=== PATIENT | female | born 1990 | race Caucasian/White ===

== ENCOUNTER 2021-03-11 15:41 | Emergency (ER) | payer MEDICAID, SELFPAY ==
[2021-03-11 15:50] VITALS: BP 143/93; PULSE 109; RESP 16; TEMP 36.7; O2SAT 99
--- NOTE | 2021-03-11 16:15 | DI.RAD_ITS ---
Exam(s) XR ANKLE LT COMPLETE EXAM: XR ANKLE LT COMPLETE CLINICAL HISTORY: Trauma TECHNIQUE: 2D digital imaging was performed. COMPARISON: No exams were available for comparison FINDINGS: BONES: No acute fracture is present. No bony destructive lesion is seen. JOINTS:The ankle mortise is normally aligned. SOFT TISSUE: Normal. IMPRESSION: Unremarkable radiographs of the left ankle. DATA REPOSITORY: RADIATION DOSE DELIVERED:
--- NOTE | 2021-03-11 16:15 | DI.RAD_ITS ---
Exam(s) XR FOOT LT COMPLETE EXAM: XR FOOT LT COMPLETE CLINICAL HISTORY: Trauma R/O Fracture. TECHNIQUE: 2D digital imaging was performed. COMPARISON: No exams were available for comparison FINDINGS: BONES: No acute fracture is present. No bony destructive lesion is seen. JOINTS: No dislocation present. SOFT TISSUE: Normal. IMPRESSION: Unremarkable radiographs of the left foot. DATA REPOSITORY: RADIATION DOSE DELIVERED:
--- NOTE | 2021-03-11 16:15 | DI.CT_ITS ---
Exam(s) CT HEAD CERVICAL SPINE WO EXAM: CT HEAD CERVICAL SPINE WO CLINICAL HISTORY: Trauma 48 hours ago. TECHNIQUE: Imaging Protocol: Axial computed tomography images with coronal and sagittal reformatted images were created and reviewed COMPARISON: No exams were available for comparison FINDINGS: CT Head: Ventricles and Extra axial spaces: Normal in size and morphology for the patient's age. Hemorrhage: None. Cerebral parenchyma: Normal. Midline shift: None. Brainstem/Cerebellum: Normal. Calvarium: Normal. Visualized Paranasal sinuses/Mastoids: Clear. Soft Tissues: Unremarkable. CT Cervical Spine: Bones: No acute fracture or subluxation. Soft Tissues: Unremarkable. Lung Apices: Clear. IMPRESSION: 1. No acute intracranial process. 2. No acute fracture or subluxation in the cervical spine. RADIATION DOSE DELIVERED: 1,606.35mGy.cm Total DLP DATA REPOSITORY: All CT scans at this facility are submitted to the National Radiology Data Registry (NRDR) Dose Index Registry (DIR) with the [employer] (ACR). RADIATION OPTIMIZATION: All CT scans at this facility use at least one of these dose optimization te chniques: automated exposure control; mA and/or kV adjustment per patient size (includes targeted exa ms where dose is matched to clinical indication); or iterative reconstruction.
--- NOTE | 2021-03-11 16:24 | DI.CT_ITS ---
Exam(s) CT CHEST/ABD/PEL W CT THORACIC LUMBAR SPINE REC EXAM: CT CHEST/ABD/PEL W CT thoracic and lumbar recons CLINICAL HISTORY: Trauma 48 hours ago TECHNIQUE: Imaging Protocol: Axial computed tomography images with coronal and sagittal reformatted images were created and reviewed CONTRAST MATERIAL: Intravenous: Omnipaque 350 Contrast volume:90 mL Oral: No COMPARISON: CT CT THORACIC LUMBAR SPINE REC from 03/11/[address] THORACIC LUMBAR SPINE REC from 03/11/2021 FINDINGS: CHEST: Tracheobronchial tree: Patent where visualized. Pulmonary parenchyma: No consolidation or dominant measurable mass. No architectural distortion. Visualized thyroid gland: Unremarkable. Mediastinum and Karime: No dominant adenopathy or fluid collection. Pleura: No effusion or pneumothorax. Heart: The heart is not dilated. No coronary artery calcifications are seen. No pericardial effusion. Aorta: Thoracic aorta non-dilated. Lymph nodes: Within normal limits. Soft tissues: Unremarkable. Bones:Normal. Thoracic spine recons: No acute fracture or subluxation. ABDOMEN: Liver: Normal density. No measurable mass. Portal, Superior Mesenteric, and Splenic Veins: Unremarkable. Gallbladder and Biliary Tract: No radiodense calculus or dilation. Pancreas: Normal density, no abnormal calcifications or inflammatory process. Spleen: Normal. Adrenals: No masses seen. Kidneys: Normal size, contour and axis. No radiodense stones or obstructive uropathy. There is a 2 cm round hypodensity in the superior pole of the right kidney. Differential considerations include a r enal cyst or mass. In the setting of trauma contusion cannot be excluded. No associated edema or he morrhage is seen. Its appearance is not consistent with a laceration. Follow-up is recommended. Th is may include a repeat CT scan or an ultrasound. Abdominal Aorta: Abdominal portion non-dilated. Bowel: No obstruction or bowel wall thickening. No evidence of appendicitis. Peritoneal Cavity: No ascites, collection or mesenteric inflammatory response. No free air. Lymph Nodes: Within normal limits. Bones: Unremarkable. Soft Tissues: Unremarkable. PELVIS: Bladder: Symmetric distention, no gross wall thickening. Reproductive Organs: There do appear to be right adnexal cysts. These are likely benign appearing fo llicles measuring up to 4 cm. Ultrasound may be obtained if clinically indicated. Lymph Nodes: Within normal limits. Bones: Within normal limits. Lumbar spine recons: No acute fracture or subluxation. IMPRESSION: 1. 2 cm round hypodensity in the superior pole of the right kidney. This may represent a small cyst or mass. It does not have the appearance of a laceration. In the setting of trauma, small contusion is possible. Follow-up CT scan or ultrasound is recommended for further evaluation. 2. No acute fracture or subluxation in the lumbar spine. 3. Unremarkable CT scan of the chest. 4. No acute fracture or subluxation in the thoracic spine. RADIATION DOSE DELIVERED: Total DLP DATA REPOSITORY: All CT scans at this facility are submitted to the National Radiology Data Registry (NRDR) Dose Index Registry (DIR) with the [employer] (ACR). RADIATION OPTIMIZATION: All CT scans at this facility use at least one of these dose optimization te chniques: automated exposure control; mA and/or kV adjustment per patient size (includes targeted exa ms where dose is matched to clinical indication); or iterative reconstruction.
--- NOTE | 2021-03-11 16:28 | ED.GENADUL_ITS ---
Discharge Plan Disposition Patient Disposition: HOME Condition: Stable Discharge Details Clinical Impression: Fall involving bunk bed as cause of accidental injury, Left ankle sprain Primary Care Provider: Libby Carver ED Provider: Ida Salmeron Home Meds and New Rx's Prescriptions: No Action cyclobenzaprine 10 mg tablet RF: 0 minocycline 100 mg capsule RF: 0 sertraline 100 mg tablet RF: 0 lorazepam 0.5 mg tablet RF: 0 sertraline 25 mg tablet 50 mg RF: 0 albuterol sulfate [ProAir HFA] 90 mcg/actuation HFA aerosol inhaler INHALATION RF: 0 azithromycin 250 MG tablet 250 mg PO DIRECTED Qty: 6 RF: 0 Discharge Instructions Instructions: Ankle Sprain (ED) Additional Instructions: Rest ice compression elevation. Today the head CT spine CTs and CT chest abdomen pelvis are all within normal limits. Follow up with primary care provider in 3-5 days. Return to ED sooner if any worsening or concerns. Increase oral fluids. Please take Tylenol or Ibuprofen with food every 4-6 hours as needed for pain and swelling. Use splint as needed for comfort. Stand Alone Forms: Work Release Referrals: Libby Carver [Primary Care Provider] - Discharge Data Discharge Date/Time-TO BE ENTERED AT DEPARTURE: 03/11/21 18:47 Medical Decision Making 30-year-old female presents to the ER status post fall from approximately 6 feet 40 hours ago. Patient was on top of a bunk bed painting a ceiling when she fell forward while getting off the bunk bed catching her left foot on the bottom bunk and hitting her head against the wall. She denies loss of consciousness however did see stars. She is complaining of headache midline C-spine tenderness back pain numbness and tingling to her left fingers and left ankle with pain. She also endorses nausea. Denies any chest or abdominal pain denies any he matochezia or problems urinating. Last normal menstrual period was 1 week ago she is taking control pills. She has not taken any Tylenol or ibuprofen prior to arrival. Labs urine , CT chest C-spine abdomen pelvis with recons T and L-spine ordered. X-rays of foot and ankle. CT abdomen pelvis: IMPRESSION: 1. 18 mm superior right renal cortical lesion as described above. In the setting of trauma, a small contusion is possible. The morphology is not consistent with a laceration. Alternatively, a small renal infarct or renal mass can have this appearance and follow-up is recommended. There is no surrounding edema or hemorrhage. 2. Incidental findings as described. CT chest: FINDINGS: Lungs: No traumatic pathology in the lungs. No evidence of pneumonia. Pleural spaces: No pneumothorax. No pleural effusion. Heart: No cardiomegaly. No pericardial effusion. Aorta: No aortic aneurysm. Lymph nodes: No enlarged lymph nodes. Bones/joints: Nonacute rib fractures are present. No acute rib fracture is seen. No acute fracture or subluxation. Soft tissues: No suspicious lesions. IMPRESSION: No acute findings. Imaging protocol: XR Left ankle. Views: 3 or more views. COMPARISON: No relevant prior studies available. FINDINGS: Bones/joints: No acute fracture or subluxation. Soft tissues: Unremarkable. IMPRESSION: No acute bony pathology. X-ray left foot: FINDINGS: Bones/joints: No acute fracture or subluxation. Soft tissues: Normal. IMPRESSION: No acute bony pathology CT C-spine: FINDINGS: Bones/joints: No acute fracture. Normal alignment. Discs/Spinal canal/Neural foramina: No significant disc protrusion. No severe spinal canal stenosis. No significant neural foraminal narrowing. Lungs: Lung apices are normal. Soft tissues: Unremarkable. IMPRESSION: No acute findings. CT head: FINDINGS: Brain: Normal. No hemorrhage. Unremarkable white matter. No mass effect. Cerebral ventricles: No ventriculomegaly. Paranasal sinuses: Visualized sinuses are unremarkable. No fluid levels. Mastoid air cells: Visualized mastoid air cells are well aerated. Bones/joints: Unremarkable. No acute fracture. Soft tissues: Unremarkable. IMPRESSION: No acute intracranial abnormality. C-collar removed. Discussed CT results with patient and home care strict return instructions. Patient verbalized understanding. Patient was placed in a lace up ankle splint and work note given. Patient remained hemodynamically stable condition throughout stay. This text was generated using [employer] system, please disregard any oddities of phrase or misspellings. HPI General Mode of arrival: wheelchair . Date/Time Provider Initiated Documentation: 03/11/21 16:19 . Limitations to Documentation: no limitations . Information obtained by: patient and RN notes reviewed . HPI Narrative: 30-year-old female presents to the ER status post fall from approximately 6 feet 40 hours ago. Patient was on top of a bunk bed painting a ceiling when she fell forward while getting off the bunk bed catching her left foot on the bottom bunk and hitting her head against the wall. She denies loss of consciousness however did see stars. She is complaining of headache midline C-spine tenderness back pain numbness and tingling to her left fingers and left ankle with pain. She also endorses nausea. Denies any chest or abdominal pain denies any hematochezia or problems urinating. Last normal menstrual period was 1 week ago she is taking control pills. She has not taken any Tylenol or ibuprofen prior to arrival. Related Data Home Medications Medication Instructions Recorded Confirmed azithromycin 250 mg PO DIRECTED #6 tab 07/20/16 albuterol sulfate [ProAir HFA] INHALATION 03/11/21 03/11/21 cyclobenzaprine mg 03/11/21 lorazepam 03/11/21 03/11/21 minocycline 03/11/21 03/11/21 sertraline 50 mg 03/11/21 sertraline mg 03/11/21 03/11/21 Previous Rx's Medication Instructions Recorded azithromycin 250 mg PO DIRECTED #6 tab 07/20/16 Allergies Allergy/AdvReac Type Severity Reaction Status Date / Time Penicillins Allergy Intermediate Nausea Unverified 03/11/21 15:58 General Stated Complaint: Trauma NAYLA: 3 Review of Systems All systems reviewed & are unremarkable except as noted in HPI and below [facility] Social History Smoking/Tobacco Use Status: Current every day Tobacco Type: cigarettes Smoking risk assessment performed?: Yes Alcohol Intake: never Drug use: Never Substance use type: marijuana Do you feel safe in your relationship?: Yes Exam Narrative Exam Narrative: General: Well Developed, Awake and Alert, conversant. Skin: Warm and Dry HEENT: Head: No palpable deformities, Normocephalic Eyes: Pupils PERRLA, EOM's intact. No periorbital eccymosis or step off Ears: Canal patent. Tympanic membranes are clear . No fournier's sign, no hemptympanum. Nose/Face: Abrasion noted to middle of frontal scalp, tip of nose, lip and chin, appears superficial and beginning to scab over. I am facial bones nontender to palpation and stable with manipulation. Mouth/Throat: No intraoral trauma. Teeth and mandible are intact. Neck: Complaining of midline C-spine tenderness. No step off, no deformity to palpation of C-spine. Trachea midline. C-collar in place prior to my examination. Chest: No surface trauma. Nontender without crepitus or deformity. Lungs clear to ausculatation bilaterally. Heart: RRR, no rubs, murmurs or gallop. Abdomen: No abrasions, ecchymosis, or surface trauma. Nondistended. Nontender to palpation no guarding, rebound, or rigidity. Pelvis: Nontender to palpation and stable to compression. Femoral pulses strong and equal Extremities: Contusion noted to the left ankle and foot. Sensation intact. Peripheral pulses intact and equal. Neuro: ANO x4, GCS 15, cranial nerves II through XII intact. Motor and sensory exam nonfocal. Reflexes are symmetric. Course Vital Signs Vital signs: Vital Signs Temperature 36.7 C 03/11/21 15:50 Pulse 109 H 03/11/21 15:50 Respiratory Rate 16 03/11/21 15:50 Blood Pressure 143/93 H 03/11/21 15:50 Pulse Oximetry 99 03/11/21 15:50 Temperature 36.7 C 03/11/21 15:50 Temperature Source Skin 03/11/21 15:50 Pulse 109 H 03/11/21 15:50 Respiratory Rate 16 03/11/21 15:50 Respiratory Effort Non-Labored 03/11/21 16:18 Respiratory Depth Normal 03/11/21 16:18 Respiratory Pattern Normal 03/11/21 16:18 Blood Pressure 143/93 H 03/11/21 15:50 Blood Pressure Position Sitting 03/11/21 15:50 Pulse Oximetry 99 03/11/21 15:50 Oxygen Delivery Method Room Air 03/11/21 15:50 Oxygen Flow Rate 0 03/11/21 15:50 Pain Level 6 03/11/21 15:50 Comment 03/11/21 15:50
[2021-03-11] MEDS: Acetaminophen 500 MG TAB PO (17:05)
[2021-03-11] MEDS: Ondansetron O.D.T. 4 MG TABEF PO (17:05)
[2021-03-11] MEDS: Cyclobenzaprine 10 MG TAB PO (17:05)
[2021-03-11 18:15] LABS: Abs Immature Grans 0.01 10^3/uL (0.0-0.06); Absolute Basophil Count 0.03 10^3/uL (0.0-0.2); Absolute Eosinophil Count 0.24 10^3/uL (0.0-0.7); Absolute Lymphocyte Count 1.38 10^3/uL (1.2-3.4); Absolute Monocyte Count 0.48 10^3/uL (0.1-0.8); Absolute Neutrophil Count 4.78 10^3/uL (1.2-6.7); Basophils % 0.4; Eosinophils % 3.5; HCT 40.3 % (36.0-46.0); HGB 13.7 g/dL (11.2-15.7); Immature Grans % 0.1; Lymphocytes % 19.9; MCH 31.6 pg (27.0-33.0); MCV 93.1 fL (80-95); MPV 9.3 fL (8.0-11.0); Monocytes % 6.9; Neutrophils % 69.2; Nucleated RBC 0 %; Platelet Count 227 10^3/uL (130-400); RBC 4.33 10^6/uL (3.93-5.22); RDW 11.8 % (11.7-14.6); RDW-SD 40.6 fL; WBC 6.92 10^3/uL (4.4-10.8)
--- NOTE | 2021-03-11 18:15 | DI.VRAD_ITS ---
PROCEDURE INFORMATION: Exam: XR Left Foot Exam date and time: 03/11/2021 16:28 Age: 30 years old Clinical indication: Pain; Foot; Left; Patient HX: Trauma 48hrs ago, per PT, fell from top bunk TECHNIQUE: Imaging protocol: XR Left foot. Views: 3 or more views. COMPARISON: CR XR ANKLE LT COMPLETE 03/11/2021 18:00 FINDINGS: Bones/joints: No acute fracture or subluxation. Soft tissues: Normal. IMPRESSION: No acute bony pathology. Dictated and Authenticated by: Claudine Tim MD. Ordering:SHADY Prieto MD
--- NOTE | 2021-03-11 18:15 | DI.VRAD_ITS ---
PROCEDURE INFORMATION: Exam: XR Left Ankle Exam date and time: 03/11/2021 16:28 Age: 30 years old Clinical indication: Pain; Ankle; Left; Patient HX: Trauma, per PT: Fell from top bunk 48hrs ago TECHNIQUE: Imaging protocol: XR Left ankle. Views: 3 or more views. COMPARISON: No relevant prior studies available. FINDINGS: Bones/joints: No acute fracture or subluxation. Soft tissues: Unremarkable. IMPRESSION: No acute bony pathology. Dictated and Authenticated by: Claudine Tim MD. Ordering:SHADY Prieto MD
--- NOTE | 2021-03-11 18:22 | DI.VRAD_ITS ---
PROCEDURE INFORMATION: Exam: CT Chest With Contrast; Diagnostic Exam date and time: 03/11/2021 16:28 Age: 30 years old Clinical indication: Injury or trauma; Patient HX: Per PT: Fall from top bunk 48hrs ago TECHNIQUE: Imaging protocol: Diagnostic computed tomography of the chest with contrast. COMPARISON: No relevant prior studies available. FINDINGS: Lungs: No traumatic pathology in the lungs. No evidence of pneumonia. Pleural spaces: No pneumothorax. No pleural effusion. Heart: No cardiomegaly. No pericardial effusion. Aorta: No aortic aneurysm. Lymph nodes: No enlarged lymph nodes. Bones/joints: Nonacute rib fractures are present. No acute rib fracture is seen. No acute fracture or subluxation. Soft tissues: No suspicious lesions. IMPRESSION: No acute findings. PROCEDURE INFORMATION: Exam: CT Abdomen And Pelvis With Contrast Exam date and time: 03/11/2021 16:28 Age: 30 years old Clinical indication: Injury or trauma; Patient HX: Per PT: Fall from top bunk 48hrs ago TECHNIQUE: Imaging protocol: Computed tomography of the abdomen and pelvis with contrast. COMPARISON: No relevant prior studies available. FINDINGS: Liver: No mass. Gallbladder and bile ducts: No calcified stones. No ductal dilation. Pancreas: No ductal dilation. No masses. Spleen: No splenomegaly or focal lesions. Adrenal glands: No mass. Kidneys and ureters: 18 mm rounded hypodensity, upper pole the right kidney extending to the cortex. No significant surrounding edema or hemorrhage. The left kidney is normal morphology. No obstruction bilaterally. Stomach and bowel: No obstruction. No mucosal thickening. Appendix: No evidence of appendicitis. Intraperitoneal space: No free air. No significant fluid collection. Vasculature: No abdominal aortic aneurysm. Lymph nodes: No significantly enlarged lymph nodes. Urinary bladder: Unremarkable as visualized. Reproductive: Likely benign-appearing follicle or follicles in the right adnexa measuring to 4 cm in diameter. Would be better worked up with ultrasound if clinically indicated. Normal CT appearance of the uterus. Bones/joints: No acute fracture. Soft tissues: No suspicious lesions. IMPRESSION: 1. 18 mm superior right renal cortical lesion as described above. In the setting of trauma, a small contusion is possible. The morphology is not consistent with a laceration. Alternatively, a small renal infarct or renal mass can have this appearance and follow-up is recommended. There is no surrounding edema or hemorrhage. 2. Incidental findings as described. Dictated and Authenticated by: Claudine Tim MD. Ordering:SHADY Prieto MD
--- NOTE | 2021-03-11 18:23 | DI.VRAD_ITS ---
PROCEDURE INFORMATION: Exam: CT Thoracic Spine Without Contrast Exam date and time: 03/11/2021 16:44 Age: 30 years old Clinical indication: Injury or trauma; Patient HX: Fall 48hrs ago TECHNIQUE: Imaging protocol: Computed tomography images of the thoracic spine without contrast. COMPARISON: No relevant prior studies available. FINDINGS: Vertebrae: No acute fracture or subluxation. Discs/Spinal canal/Neural foramina: No significant disc protrusion. No significant spinal canal stenosis. No significant neural foraminal narrowing. Soft tissues: No suspicious lesions. IMPRESSION: No acute bony pathology. PROCEDURE INFORMATION: Exam: CT Lumbar Spine Without Contrast Exam date and time: 03/11/2021 16:44 Age: 30 years old Clinical indication: Injury or trauma; Patient HX: Fall 48hrs ago TECHNIQUE: Imaging protocol: Computed tomography images of the lumbar spine without contrast. COMPARISON: No relevant prior studies available. FINDINGS: Vertebrae: No acute fracture. Normal alignment. Discs/Spinal canal/Neural foramina: No significant disc disease or stenosis. Soft tissues: No paraspinal lesions or collections. Regarding additional findings please see CT abdomen pelvis same day. IMPRESSION: No acute pathology in the lumbar spine. Dictated and Authenticated by: Claudine Tim MD. Ordering:SHADY Prieto MD
--- NOTE | 2021-03-11 18:25 | DI.VRAD_ITS ---
PROCEDURE INFORMATION: Exam: CT Head Without Contrast Exam date and time: 03/11/2021 4:28 PM Age: 30 years old Clinical indication: Injury or trauma; Patient HX: Fall 48hrs ago TECHNIQUE: Imaging protocol: Computed tomography of the head without contrast. COMPARISON: No relevant prior studies available. FINDINGS: Brain: Normal. No hemorrhage. Unremarkable white matter. No mass effect. Cerebral ventricles: No ventriculomegaly. Paranasal sinuses: Visualized sinuses are unremarkable. No fluid levels. Mastoid air cells: Visualized mastoid air cells are well aerated. Bones/joints: Unremarkable. No acute fracture. Soft tissues: Unremarkable. IMPRESSION: No acute intracranial abnormality. PROCEDURE INFORMATION: Exam: CT Cervical Spine Without Contrast Exam date and time: 03/11/2021 4:28 PM Age: 30 years old Clinical indication: Injury or trauma; Patient HX: Fall 48hrs ago TECHNIQUE: Imaging protocol: Computed tomography images of the cervical spine without contrast. COMPARISON: No relevant prior studies available. FINDINGS: Bones/joints: No acute fracture. Normal alignment. Discs/Spinal canal/Neural foramina: No significant disc protrusion. No severe spinal canal stenosis. No significant neural foraminal narrowing. Lungs: Lung apices are normal. Soft tissues: Unremarkable. IMPRESSION: No acute findings. Dictated and Authenticated by: Basilio Langley MD. Ordering:SHADY Prieto MD
[2021-03-11 18:28] LABS: ALT 30 U/L (14-59); AST 22 U/L (15-37); Albumin 3.4 g/dL (3.4-5.0); Alkaline Phosphatase 43 U/L (46-116); Anion Gap 7.8 mmol/L (3-11); BUN 16 mg/dL (7-18); Bilirubin, Total 0.3 mg/dL (0.2-1.0); CO2 27.2 mmol/L (21.0-32.0); CREATININE 0.9 mg/dL (0.55-1.02); Calcium 8.6 mg/dL (8.5-10.1); Chloride 100 mmol/L (98-107); Glucose 88 mg/dL (74-106); Sodium 135 mmol/L (136-145)
[2021-03-11 18:39] VITALS: BP 130/69; PULSE 86; O2SAT 100
== END 2021-03-11 18:47 | disposition home or self-care (01) ==
PROVIDERS: Emergency Provider Registered Nurse Emergency; PCP Internal Medicine
DX: S93.492A Sprain of other ligament of left ankle, initial encounter (principal); S09.90XA Unspecified injury of head, initial encounter; M54.2 Cervicalgia; M54.89 Other dorsalgia; R20.2 Paresthesia of skin; R11.0 Nausea; W06.XXXA Fall from bed, initial encounter
CPT/HCPCS: 29515; 36415; 74177; 80053; 81025; 99285; 70450; 71260; 72125; 73610; 73630; 85025

== ENCOUNTER 2021-05-15 12:21 | Emergency (ER) | payer MEDICAID, SELFPAY ==
[2021-05-15 12:23] VITALS: BP 137/72; PULSE 122; RESP 18; TEMP 36.1; O2SAT 100
[2021-05-15 12:26] VITALS: BP 137/72; PULSE 99; O2SAT 100
[2021-05-15 12:27] VITALS: O2SAT 99
--- NOTE | 2021-05-15 12:30 | DI.RAD_ITS ---
Exam(s) XR ABDOMEN FLAT UPRIGHT EXAM: 2D digital imaging was performed. CLINICAL HISTORY: lower back pain. COMPARISON: No exams were available for comparison TECHNIQUE: Supine and uprightSupine and Lateral views of the abdomen was performed. FINDINGS: LUNG BASES: Clear. BOWEL GAS PATTERN: Nondistended. There is stool throughout the colon consistent with constipation. FREE AIR: None. CALCIFICATIONS: No radiopaque calcifications. OSSEOUS STRUCTURES: Normal for age. OTHER FINDINGS: None. IMPRESSION: Constipation. DATA REPOSITORY: RADIATION DOSE DELIVERED:
--- NOTE | 2021-05-15 12:39 | ED.GENADUL_ITS ---
Discharge Plan Disposition Patient Disposition: HOME Condition: Improving Discharge Details Clinical Impression: Constipation Primary Care Provider: Libby Carver ED Provider: Elias Lora Home Meds and New Rx's Prescriptions: New docusate sodium [Colace] 100 mg capsule 100 mg PO BID PRN (Reason: constipation) Qty: 10 RF: 0 Continued minocycline 100 mg capsule RF: 0 lorazepam 0.5 mg tablet 0.5 mg PO PRN PRNRF: 0 sertraline 25 mg tablet 100 mg PO DAILY RF: 0 albuterol sulfate [ProAir HFA] 90 mcg/actuation HFA aerosol inhaler INHALATION RF: 0 Discharge Instructions Instructions: Constipation (ED) Additional Instructions: Home to rest today. Small, frequent sips of fluids to maintain good hydration. 5-6 fruits and vegetables per day to increase fiber in the diet. Take Colace twice daily until you have relief of constipation. May benefit from adding daily fiber supplement to your daily routine. Return to the emergency room for any acute concerns. Medical Decision Making 30-year-old female presents from home complaining of 2 days of constant low back pain associated with constipation and in conjunction with the beginning of her menstrual cycle. She also questions new jaundice which she describes as feeling there is a blue rim on her sclera. Patient history of anxiety. She arrives ER afebrile, with a pulse of 120, normotensive and interactive. She does have reproducible musculoskeletal back pain in the lumbar region. She does not appear jaundiced. Given patient's history of anxiety, she was given Ativan in the ER with good relief. She is referred for laboratory testing and x-ray. Labs are reassuring with unremarkable CBC and chemistries. X-ray reveals constipation throughout the colon. Patient reassured, will start her on a stool softener. She is stable, improved, appropriate for discharge to home. HPI General Mode of arrival: ambulatory . Date/Time Provider Initiated Documentation: 05/15/21 12:21 . Limitations to Documentation: no limitations . Information obtained by: patient . History of Present Illness 30 year old F presents to the emergency department with the chief complaint of Low back pain, anxious about question of skin changes, described as moderate, Quality is described as dull and constant, and is localized to the back. Patient reports no radiation. Patient started experiencing this hour(s) and it has been constant. Rest improves symptom(s), Movement worsens symptoms . Patient notes denies chest pain, fever/chills, loss of appetite, nausea/vomiting, shortness of breath, syncope and weakness. Patient did receive the following treatments prior to arrival, none Related Data Home Medications Medication Instructions Recorded Confirmed albuterol sulfate [ProAir HFA] INHALATION 03/11/21 03/11/21 lorazepam 0.5 mg PO PRN PRN 03/11/21 03/11/21 minocycline 03/11/21 03/11/21 sertraline 100 mg PO DAILY 03/11/21 05/15/21 docusate sodium [Colace] 100 mg PO BID PRN #10 cap 05/15/21 Previous Rx's Medication Instructions Recorded docusate sodium [Colace] 100 mg PO BID PRN #10 cap 05/15/21 Allergies Allergy/AdvReac Type Severity Reaction Status Date / Time Penicillins Allergy Intermediate Nausea Unverified 03/11/21 15:58 General Stated Complaint: Nk/Back Pain NAYLA: 3 Review of Systems Narrative: Feels she has a new blue rim around iris, has skin lesions that she attributes to picking behavior, denies changes to urine. Started her menstrual period today with normal flow. Complains of constipation for 3 days. 8 systems reviewed and otherwise negative [facility] Social History Smoking/Tobacco Use Status: Current every day Tobacco Type: cigarettes Smoking risk assessment performed?: Yes Alcohol Intake: former Drug use: Occasionally Substance use type: marijuana Details: no alcohol x2 years Do you feel safe at home: Yes Do you feel safe in your relationship?: Yes Exam Narrative Exam Narrative: GEN: awake, alert, oriented 3. Pleasant, well groomed, interactive. HEAD: Normocephalic, atraumatic ENT: Mucous membranes moist, oropharynx unremarkable, External ear exam unremarkable EYES: PERRL, EOMI NECK: Full ROM, no [place], no menigismus CHEST/RESP: Nontender, clear to auscultation bilateral, no wheeze/rhonchi/rales CARDIOVASCULAR: RRR, no murmur, rub eb. 2+ Rad pulse bilateral ABDOMEN: Soft, nontender, no mass. +Bowel sounds Back: Minimal lower back tenderness both midline and paraspinous areas. No step-off or deformity EXT: Full ROM, no edema, no rash Neuro: Grossly normal neurologic exam, conversant, interactive. Psych: Speech fluent, thoughts congruent, affect anxious Course Vital Signs Vital signs: Vital Signs Temperature 36.1 C L 05/15/21 12:23 Pulse 122 H 05/15/21 12:23 Respiratory Rate 18 05/15/21 12:23 Blood Pressure 137/72 05/15/21 12:23 Pulse Oximetry 100 05/15/21 12:23 Temperature 36.1 C L 05/15/21 12:23 Temperature Source Temporal Artery Scan 05/15/21 12:23 Pulse 122 H 05/15/21 12:23 Respiratory Rate 18 05/15/21 12:23 Respiratory Effort Non-Labored 05/15/21 12:27 Blood Pressure 137/72 05/15/21 12:23 Blood Pressure Position Sitting 05/15/21 12:23 Pulse Oximetry 100 05/15/21 12:23 Oxygen Delivery Method Room Air 05/15/21 12:23 Oxygen Flow Rate 0 05/15/21 12:23 Pain Level 9 05/15/21 12:27
[2021-05-15] MEDS: Normal Saline 1,000 ML 1000 ML IV (12:45)
[2021-05-15 12:50] LABS: Absolute Basophil Count 0.02 10^3/uL (0.0-0.2); Absolute Eosinophil Count 0.12 10^3/uL (0.0-0.7); Absolute Lymphocyte Count 1.24 10^3/uL (1.2-3.4); Absolute Monocyte Count 0.63 10^3/uL (0.1-0.8); Absolute Neutrophil Count 3.13 10^3/uL (1.2-6.7); Basophils % 0.4; Eosinophils % 2.3; HCT 42.8 % (36.0-46.0); HGB 14.2 g/dL (11.2-15.7); Lymphocytes % 24.1; MCH 31.2 pg (27.0-33.0); MCHC 33.2 % (32.0-36.0); MCV 94.1 fL (80-95); MPV 9.6 fL (8.0-11.0); Monocytes % 12.3; Neutrophils % 60.9; Nucleated RBC 0 %; Platelet Count 262 10^3/uL (130-400); RBC 4.55 10^6/uL (3.93-5.22); RDW 12.3 % (11.7-14.6); RDW-SD 42.9 fL; WBC 5.14 10^3/uL (4.4-10.8)
[2021-05-15] MEDS: Ketorolac 15 MG/ML VIAL IVP (12:57)
[2021-05-15] MEDS: LORazepam 2 MG/ML VIAL 0.5 MG IVP (12:59)
[2021-05-15 13:01] LABS: Clarity Cloudy (Clear); Specific Gravity >= 1.030 (1.005-1.025)
[2021-05-15 13:02] LABS: Glucose Negative (Negative); Leukocyte Esterase Negative (Negative); Nitrite Negative (Negative); pH 5.5 (5-8)
[2021-05-15 13:03] LABS: Blood Large (Negative); Urobilinogen 0.2 EU/dL (Up TO 0.2)
[2021-05-15 13:04] LABS: C & S Indicated? No/Sq. Contamination; Epithelial Cells Many HPF (Negative); RBC >50 HPF (0-2)
[2021-05-15 13:06] LABS: ALT 30 U/L (14-59); AST 28 U/L (15-37); Albumin 3.7 g/dL (3.4-5.0); Alkaline Phosphatase 46 U/L (46-116); BUN 13 mg/dL (7-18); Bilirubin, Total 0.6 mg/dL (0.2-1.0); CREATININE 1.1 mg/dL (0.55-1.02); Calcium 9.2 mg/dL (8.5-10.1); Chloride 106 mmol/L (98-107); Estimated GFR 58.32 (mL/min/1.73m2); Glucose 82 mg/dL (74-106); Sodium 143 mmol/L (136-145); Total Protein 7.8 g/dL (6.4-8.2)
--- NOTE | 2021-05-15 14:17 | DI.VRAD_ITS ---
PROCEDURE INFORMATION: Exam: XR Abdomen Exam date and time: 05/15/2021 12:38 PM Age: 30 years old Clinical indication: Other: Lower back pain TECHNIQUE: Imaging protocol: XR of the abdomen. Views: 2 Views. Upright and supine views. COMPARISON: CT CHEST/ABD/PEL W 03/11/2021 5:54 PM FINDINGS: Gastrointestinal tract: Constipation throughout the colon. Intraperitoneal space: Normal. No free air. Bones/joints: Unremarkable for age. IMPRESSION: Constipation throughout the colon. Dictated and Authenticated by: Yaneth Silverio MD. Ordering:YULIA Griffin MD
[2021-05-15 14:27] VITALS: PULSE 76
[2021-05-15 14:29] VITALS: BP 117/78; PULSE 77; RESP 18; TEMP 36.3; O2SAT 100
== END 2021-05-15 14:34 | disposition home or self-care (01) ==
PROVIDERS: Emergency Provider Emergency Medicine; PCP Internal Medicine
DX: K59.00 Constipation, unspecified (principal); F41.9 Anxiety disorder, unspecified
CPT/HCPCS: 36415; 80048; 80053; 81025; 85027; 96361; 96374; 96375; 99284; 74019; 81003; 81015; 85025; J1885; J2060

== ENCOUNTER 2023-02-12 16:06 | Emergency (ER) | payer OTHER, SELFPAY ==
[2023-02-12 16:07] VITALS: BP 130/74; PULSE 73; RESP 15; TEMP 36.7; O2SAT 100
--- NOTE | 2023-02-12 16:34 | ED.GENADUL_ITS ---
Discharge Plan Disposition Patient Disposition: Home Discharge Details Clinical Impression: Laceration of index finger Primary Care Provider: Libby Carver ED Provider: Tony Nieves Home Meds and New Rx's Prescriptions: No Action acetylcysteine 600 mg capsule 600 mg PO BID benzoyl peroxide,skin cleansr5 4 % kit topical clonazepam 0.5 mg tablet 0.5 mg PO DAILY PRN cyclobenzaprine 10 mg tablet 10 mg PO HS doxycycline hyclate 100 mg capsule 100 mg PO BID duloxetine 60 mg capsule,delayed release(DR/EC) 60 mg PO DAILY ibuprofen 800 mg tablet 800 mg PO BID spironolactone 50 mg tablet 50 mg PO DAILY norgestimate-ethinyl estradiol [Tri-Sprintec (28)] 0.18/0.215/0.25 mg-35 mcg (28) tablet 1 tab PO DAILY albuterol sulfate [ProAir HFA] 90 mcg/actuation HFA aerosol inhaler INHALATION Patient Comments: INHALE 2 PUFFS BY MOUTH EVERY 4 HOURS NEEDED docusate sodium [Colace] 100 mg capsule 100 mg PO BID PRN (Reason: constipation) Qty: 10 0RF Discharge Instructions Instructions: Finger Laceration (ED) Additional Instructions: Monitor for signs of infection and return for new or worsening symptoms. Keep wound clean and dry otherwise you may return to activities as tolerated. Referrals: Libby Carver [Primary Care Provider] - (as needed for reassessment ) Medical Decision Making Patient presenting to the emergency department for chief complaint of finger laceration. Patient reports that she was using an air powered saw when it actually slipped and caused a left distal index finger laceration. Patient denies any other injury or trauma, states she is up-to-date on tetanus, denies any numbness tingling or dysfunction of the digit. Physical exam shows a superficial 1 cm laceration to the distal phalanx of the left index finger. Bleeding is controlled and this does not need wound repair. Bandage was replaced and patient encouraged to monitor for signs of infection and return as needed. After discussion of diagnosis and plan of care patient has no further needs, questions, or concerns and states clear understanding to return to the emergency department for any worsening symptoms. This documentation was generated using [employer] system, please disregard any oddities of phrase or misspellings. HPI General Mode of arrival: ambulatory . Date/Time Provider Initiated Documentation: 02/12/23 16:30 . Limitations to Documentation: no limitations . Information obtained by: patient and RN notes reviewed . History of Present Illness 32 year old F presents to the emergency department with the chief complaint of Left index finger injury, described as mild, and is localized to the left and upper extremity. Patient reports no radiation. Patient started experiencing this hour(s) (1) and it has been constant. No relieving factors improve symptom(s), No exacerbating factors reported . Patient notes no other symptoms.. Patient did receive the following treatments prior to arrival, none Related Data Home Medications Medication Instructions Recorded Confirmed albuterol sulfate 90 mcg/actuation inhalation 03/11/21 02/08/22 aerosol inhaler (ProAir HFA) docusate sodium 100 mg capsule 100 mg PO BID PRN constipation #10 05/15/21 02/08/22 (Colace) caps acetylcysteine 600 mg capsule 600 mg PO BID 01/18/22 02/08/22 benzoyl peroxide and skin cleanser ea topical 01/18/22 02/08/22 #5 4 % topical kit clonazepam 0.5 mg tablet 0.5 mg PO DAILY PRN 01/18/22 02/08/22 cyclobenzaprine 10 mg tablet 10 mg PO HS 01/18/22 02/08/22 doxycycline hyclate 100 mg capsule 100 mg PO BID 01/18/22 02/08/22 duloxetine 60 mg capsule,delayed 60 mg PO DAILY 01/18/22 02/12/23 release ibuprofen 800 mg tablet 800 mg PO BID 01/18/22 02/08/22 norgestimate-ethinyl estradiol 1 tab PO DAILY 01/18/22 02/12/23 0.18 mg/0.215mg/0.25mg-35 mcg(28)tablet (Tri-Sprintec (28)) spironolactone 50 mg tablet 50 mg PO DAILY 01/18/22 02/08/22 Previous Rx's Medication Instructions Recorded docusate sodium 100 mg capsule 100 mg PO BID PRN constipation #10 05/15/21 (Colace) caps Allergies Allergy/AdvReac Type Severity Reaction Status Date / Time Penicillins Allergy Intermediate Nausea Unverified 02/12/23 16:12 amoxicillin Allergy Diarrhea Unverified 02/12/23 16:12 General Stated Complaint: Laceration NAYLA: 4 Review of Systems Musculoskeletal Musculoskeletal: Denies arthralgias, Denies joint swelling, Denies limited range of motion, Denies numbness, Denies stiffness and Denies tingling Integumentary/Breasts Skin/Breast: Reports as per HPI Neurologic Neurologic: Denies numbness and Denies tingling PFSH All Active Problems Laceration of index finger (Acute) Muscle spasm (Acute) Fall involving bunk bed as cause of accidental injury (Acute) Left ankle sprain (Acute) Constipation (Acute) Medical History Depressive disorder IUD (intrauterine device) in place Low back pain Lumbar radiculopathy Surgical History [place] teeth removed Family History Sister Hyperglycemia Hypertension Heart disease Brother IBS (irritable bowel syndrome) Mother Ovarian cyst Uterine mass Social History Smoking/Tobacco Use Status: Current every day Tobacco Type: e-cigarettes Smoking risk assessment performed?: Yes Alcohol Intake: former Drug use: Occasionally Substance use type: marijuana Details: no alcohol x2 years Housing: house Do you feel safe at home: Yes Do you feel safe in your relationship?: Yes Exam Const General: cooperative, no acute distress and not ill appearing Orientation: alert, awake and oriented x3 HENMT Mouth: moist mucous membranes Resp Effort & Inspection: normal respiratory effort, able to speak in complete sentences and no respiratory distress Skin General skin exam: no rashes or lesions noted Neuro General: patient alert, patient awake, patient oriented x3, moves all extremities and no focal motor deficits Sensory Exam: no sensory deficits noted Extrem General: normal exam except as noted Left upper extremity: hand Details: laceration (1cm) 2nd digit dorsal aspect Details: linear, superficial, with motor nerve function intact and with sensation intact; not actively bleeding, not involving subcutaneous tissue and not involving muscle tissue Course Vital Signs Vital signs: Vital Signs Temperature 36.7 C 02/12/23 16:07 Pulse 73 02/12/23 16:07 Respiratory Rate 15 02/12/23 16:07 Blood Pressure 130/74 02/12/23 16:07 Pulse Oximetry 100 02/12/23 16:07 Temperature 36.7 C 02/12/23 16:07 Temperature Source Temporal Artery Scan 02/12/23 16:07 Pulse 73 02/12/23 16:07 Respiratory Rate 15 02/12/23 16:07 Respiratory Effort Normal 02/12/23 16:10 Blood Pressure 130/74 02/12/23 16:07 Blood Pressure Position Sitting 02/12/23 16:07 Pulse Oximetry 100 02/12/23 16:07 Oxygen Delivery Method Room Air 02/12/23 16:07 Oxygen Flow Rate 0 02/12/23 16:07 Pain Level 3 02/12/23 16:10
[2023-02-12 16:42] VITALS: BP 132/78; PULSE 77; RESP 18; TEMP 36.9; O2SAT 98
== END 2023-02-12 16:53 | disposition home or self-care (01) ==
PROVIDERS: Emergency Provider Nurse Practitioner Family; PCP Internal Medicine
DX: S61.211A Laceration without foreign body of left index finger without damage to nail, initial encounter (principal); W29.3XXA Contact with powered garden and outdoor hand tools and machinery, initial encounter
CPT/HCPCS: 99282

== ENCOUNTER 2023-10-25 07:20 | Emergency (ER) | payer OTHER, SELFPAY ==
--- NOTE | 2023-10-25 07:15 | RT.EKG_ITS ---
APPROVED REPORT Exam: Resting ECG Reason for Exam: syncope Patient Location: E HR:60 bpm ECG Measurements Heart Rate 60 AXIS SD 131 P 70 QRSd 77 QRS 74 QT 379 T 71 QTc 379 Conclusion Sinus rhythm 60 no stemi
[2023-10-25 07:23] VITALS: BP 142/76; PULSE 66; RESP 14; TEMP 36.7; O2SAT 100
[2023-10-25 07:55] VITALS: BP 141/85; PULSE 68; RESP 16; O2SAT 99
--- NOTE | 2023-10-25 08:05 | DI.CT_ITS ---
Exam(s) CT HEAD CERVICAL SPINE WO EXAM: CT HEAD CERVICAL SPINE WO CLINICAL HISTORY: fall. TECHNIQUE: Imaging Protocol: Axial computed tomography images with coronal and sagittal reformatted images were created and reviewed COMPARISON: CT CT HEAD CERVICAL SPINE WO from 03/11/2021 FINDINGS: Head CT Ventricles and Extra axial spaces: Normal in size and morphology for the patient's age. Hemorrhage: None. Cerebral parenchyma: No evidence of mass or acute infarct. Midline shift: None. Brainstem/Cerebellum: Normal. Calvarium: Normal. Visualized Paranasal sinuses/Mastoids: Clear. Soft tissues: Unremarkable. Cervical Spine CT BONES: Vertebral body heights are maintained. Alignment is normal. There is no evidence of acute frac ture. Mild degenerative disc changes and facet degenerative changes are seen at C6-7. SOFT TISSUES: No paraspinal hematoma. The airway appears intact. No pneumothorax is seen at the lung apices. IMPRESSION: Head CT: No acute abnormality. C-spine CT: No acute abnormality. RADIATION DOSE DELIVERED: 1,289.39mGy.cm Total DLP DATA REPOSITORY: All CT scans at this facility are submitted to the National Radiology Data Registry (NRDR) Dose Index Registry (DIR) with the [employer] [place] [employer] (ACR). RADIATION OPTIMIZATION: All CT scans at this facility use at least one of these dose optimization te chniques: automated exposure control; mA and/or kV adjustment per patient size (includes targeted exa ms where dose is matched to clinical indication); or iterative reconstruction.
--- NOTE | 2023-10-25 08:12 | ED.GENADUL_ITS ---
Discharge Plan Disposition Patient Disposition: Home Condition: Stable Discharge Details Clinical Impression: Finger injury, Syncope Primary Care Provider: Libby Carver ED Provider: Tatiana Salgado Home Meds and New Rx's Prescriptions: No Action duloxetine 60 mg capsule,delayed release(DR/EC) 60 mg PO DAILY norgestimate-ethinyl estradiol [Tri-Sprintec (28)] 0.18/0.215/0.25 mg-35 mcg (28) tablet 1 tab PO DAILY Discharge Instructions Instructions: Syncope (ED) HPI General Date/Time Provider Initiated Documentation: 10/25/23 07:28 . Limitations to Documentation: no limitations . Information obtained by: patient . HPI Narrative: 32-year-old female without significant past medical history presents for evaluation after syncopal episode at work. Patient reports that she cut her finger at work and was sitting down holding pressure on her finger. She states the next thing she knew she had fallen out of the chair and was woke up on the floor by her coworker. She reports that she did hit her head and now has some pain in her head and neck. She states that she is never passed out before. She has not eaten breakfast yet today. The cut on her finger is not really bothering her, bleeding has resolved with pressure. Related Data Home Medications Medication Instructions Recorded Confirmed duloxetine 60 mg capsule,delayed 60 mg PO DAILY 01/18/22 10/25/23 release norgestimate-ethinyl estradiol 1 tab PO DAILY 01/18/22 10/25/23 0.18 mg/0.215mg/0.25mg-35 mcg(28)tablet (Tri-Sprintec (28)) Allergies Allergy/AdvReac Type Severity Reaction Status Date / Time Penicillins Allergy Intermediate Nausea Unverified 02/12/23 16:12 amoxicillin Allergy Diarrhea Unverified 02/12/23 16:12 General Stated Complaint: Dizzy/Sync NAYLA: 3 Exam Narrative Exam Narrative: Review of Systems: All systems reviewed & are unremarkable except as noted in HPI and below Well-developed, no acute distress NCAT, no obvious contusion, swelling, deformity or laceration, there is some generalized tenderness Midline C-spine without tenderness, step-off or deformity, full range of motion PERRL, normal conjunctiva RRR, no murmur Unlabored respiratory effort, clear bilaterally Nondistended abdomen, soft nontender Extremities w/o deformity, no cyanosis, no edema long finger left hand with small injury noted to the cuticle, no active bleeding, nail intact No rashes or lesions. no focal neurologic deficits Appropriate mood and affect Course Vital Signs Vital signs: Vital Signs Temperature 36.7 C 10/25/23 07:23 Pulse 66 10/25/23 07:23 Respiratory Rate 14 10/25/23 07:23 Blood Pressure 142/76 H 10/25/23 07:23 Pulse Oximetry 100 10/25/23 07:23 Temperature 36.7 C 10/25/23 07:23 Temperature Source Temporal Artery Scan 10/25/23 07:23 Pulse 68 10/25/23 07:55 Respiratory Rate 16 10/25/23 07:55 Respiratory Effort Normal, Non-Labored 10/25/23 07:32 Respiratory Depth Normal 10/25/23 07:32 Respiratory Pattern Normal 10/25/23 07:32 Blood Pressure 141/85 H 10/25/23 07:55 Pulse Oximetry 99 10/25/23 07:55 Oxygen Delivery Method Room Air 10/25/23 07:55 Oxygen Flow Rate 0 10/25/23 07:55 Lab/Test Results Lab/Test Results: POC- Test(urine) Negative Medical Decision Making Emergent evaluation after syncopal episode. Initial differential includes vasovagal syncope, hypoglycemia, doubt cardiogenic syncope given the history of events. Patient is asymptomatic at this time. No noted seizure activity. The wound on her finger is very minimal, does not require any suture repair. Will send for CT imaging to evaluate for traumatic injury given that she fell from a barstool. test negative. EKG without dysrhythmia or ischemic change. CT imaging negative for any acute traumatic process. Patient is feeling much better, and ate food in the emergency department. Advised local wound care for her finger. Return precautions advised. Discharged in good condition. Medical Records Medical records reviewed: Yes I reviewed the patient's medical records. Lab Data Lab results reviewed: Yes I reviewed the patient's lab results. Quality:SDOH Health Related Social Needs: No Data to Display PFSH All Active Problems (Updated 10/25/23 @ 08:40 by Tatiana Salgado MD) Syncope (Chronic) Finger injury (Acute) Muscle spasm (Acute) Fall involving bunk bed as cause of accidental injury (Acute) Left ankle sprain (Acute) Constipation (Acute) Medical History Lumbar radiculopathy Low back pain IUD (intrauterine device) in place Depressive disorder Surgical History [place] teeth removed Family History Sister Hyperglycemia Hypertension Heart disease Brother IBS (irritable bowel syndrome) Mother Ovarian cyst Uterine mass Social History Smoking/Tobacco Use Status: Current every day Tobacco Type: e-cigarettes Smoking risk assessment performed?: Yes Alcohol Intake: former Drug use: Occasionally Substance use type: marijuana Details: no alcohol x2 years Housing: house Do you feel safe at home: Yes Do you feel safe in your relationship?: Yes
[2023-10-25 08:16] VITALS: BP 129/84; PULSE 61; PULSE 62; RESP 17
[2023-10-25 08:50] VITALS: BP 120/81; PULSE 73; RESP 16; O2SAT 95
== END 2023-10-25 08:51 | disposition home or self-care (01) ==
PROVIDERS: Emergency Provider Emergency Medicine; PCP Internal Medicine
DX: R55 Syncope and collapse (principal); R51.9 Headache, unspecified; M54.2 Cervicalgia; W26.8XXA Contact with other sharp object(s), not elsewhere classified, initial encounter; W07.XXXA Fall from chair, initial encounter; Z04.2 Encounter for examination and observation following work accident
CPT/HCPCS: 36416; 81025; 82962; 93005; 99284; 70450; 72125; 93010; 99283

== ENCOUNTER 2023-11-14 17:18 | Outpatient (REF) | payer OTHER, SELFPAY | END 2023-11-14 17:19 | disposition home or self-care (01) | LOC: LBN 17:18 | PROVIDERS: PCP Internal Medicine; Visit Provider Nurse Practitioner Family | DX: J02.9 Acute pharyngitis, unspecified (principal) | CPT/HCPCS: 87070 ==